=== PATIENT | female | born 1995 | race Two or more races ===

== ENCOUNTER 2024-10-14 20:47 | Emergency (ER) | payer SELFPAY ==
[2024-10-14 20:49] VITALS: BP 108/59; PULSE 60; RESP 14; TEMP 36.4; O2SAT 100
[2024-10-14 21:29] LABS: Strep Group A RT-PCR NOT DETECTED (Negative)
[2024-10-14 21:40] LABS: Influenza A QL RT-PCR Negative (Negative); Influenza B QL RT-PCR Negative (Negative); RSV RNA, RT-PCR Negative (Negative); SARS-CoV-2 RNA PCR Negative (Negative)
--- NOTE | 2024-10-14 21:40 | ED.URI ---
HPI - URI/Sore Throat General Chief Complaint: Upper Respiratory Infection Stated Complaint: flu symptoms Time Seen by Provider: 10/14/24 21:14 Source: patient Mode of arrival: ambulatory Limitations: no limitations History of Present Illness HPI Narrative: Patient is a 29-year-old female who presents the ED with report of URI symptoms. Patient reports symptoms began last night. She complains of sore throat, congestion, runny nose, mild cough. Has not taken anything for symptoms. Denies fevers, shortness of breath. Denies known sick contacts. Related Data Allergies Allergy/AdvReac Type Severity Reaction Status Date / Time No Known Allergies Allergy Verified 10/14/24 20:53 Review of Systems Review of Systems: All systems reviewed & are unremarkable except as noted in HPI. All systems reviewed & are unremarkable except as noted in HPI and below Exam Narrative: GENERAL: Well appearing, well-nourished, non-toxic, in no acute distress. HEAD: Normocephalic, atraumatic. ENT: Very mild posterior pharynx erythema. No tonsillar hypertrophy or exudate. Uvula midline and nonedematous. No stridor or distress. RESPIRATORY: Airway patent, respirations nonlabored. Clear to auscultation bilaterally, no rales, rhonchi, wheezing. No significant focal lung sounds. CARDIOVASCULAR: Regular rate and rhythm without murmurs, rubs, or gallops. MUSCULOSKELETAL: Moves all extremities. No gross deformities. SKIN: Warm, dry, normal color. NEURO: A&O X3. Speech clear. PSYCHIATRIC: Appropriate mood and affect. Normal interaction. Course Vital Signs Vital signs: Vital Signs Temperature 97.6 F 10/14/24 20:49 Pulse Rate 60 10/14/24 20:49 Respiratory Rate 14 10/14/24 20:49 Blood Pressure 108/59 L 10/14/24 20:49 Pulse Oximetry 100 10/14/24 20:49 Oxygen Delivery Room Air 10/14/24 20:49 Temperature 97.6 F 10/14/24 20:49 Pulse Rate 60 10/14/24 20:49 Respiratory Rate 14 10/14/24 20:49 Blood Pressure 108/59 L 10/14/24 20:49 Pulse Oximetry 100 10/14/24 20:49 Oxygen Delivery Room Air 10/14/24 20:49 MDM - URI/Sore Throat MDM Narrative Medical decision making narrative: URI symptoms that began last night. Testing for influenza, COVID, RSV, strep negative. Discussed likelihood of viral URI. Discussed management of such. Given return precautions. Discussed in stable condition. Medical Records Attestation: I reviewed the patient's medical records. Lab Data Attestation: I reviewed the patient's lab results. Labs: Lab Results 10/14/24 Range/Units 20:56 Influenza A (RT-PCR) Negative (Negative) Influenza B (RT-PCR) Negative (Negative) RSV (RT-PCR) Negative (Negative) SARS-CoV-2 RNA (RT-PCR) Negative (Negative) Group A Strep (PCR) Not detected (Negative) Discharge Plan Discharge Clinical Impression: Upper respiratory infection Qualifiers: URI type: unspecified URI Qualified Code(s): J06.9 - Acute upper respiratory infection, unspecified Patient Disposition: Home Condition: Stable Instructions: Antibiotic Form, Upper Respiratory Infection (ED), Viral Syndrome (ED), Cold Symptoms (ED) Additional Instructions: You tested negative for influenza, COVID, RSV, strep throat. You likely have a viral infection that will resolve on its own. Stay well-hydrated at home. Recommend electrolyte rich fluids, Gatorade, Pedialyte, body armor. Recommend Tylenol and Ibuprofen around the clock as needed for discomfort and/or fevers. Recommend [id number] cough and cold medicines for symptom relief, Delsym, Mucinex, DayQuil, NyQuil, Sudafed, Robitussin, TheraFlu. Follow with primary care doctor for further evaluation if needed. Return to the ED if you experience chest pain, difficulty breathing, unable to keep down food or drink, severe pain, or any other symptoms of concern. Patient Language: Swedish Follow-up/Referrals: Dylon Torres MD [Physician] - (PRIMARY CARE) PHYSICIAN,CRIMINOLOGY PROFESSOR [Primary Care Provider] - Time of Disposition: 21:58
[2024-10-14] MEDS: ACETAMINOPHEN 500 MG TABLET 1000 MG PO (22:03)
[2024-10-14] MEDS: IBUPROFEN 600 MG TABLET PO (22:04)
[2024-10-14 22:06] VITALS: O2SAT 98
== END 2024-10-14 22:08 | disposition home or self-care (01) ==
LOC: ANHED 22:01
PROVIDERS: Emergency Medicine; Emergency Provider Physician Assistant
DX: J06.9 Acute upper respiratory infection, unspecified (principal); Z20.822 Contact with and (suspected) exposure to COVID-19
CPT/HCPCS: 87637; 87651; 99282; A9270